=== PATIENT | male | born 1955 | race Caucasian/White ===

== ENCOUNTER 2019-03-21 07:12 | Day surgery (SDC) | payer BC ==
[~2019-03-21 07:12] MED LIST: CEFAZOLIN 1 GM INJ
[2019-03-21] MEDS: SOD CHLORIDE 0.9% 1,000 ML IV (08:57)
[2019-03-21] MEDS ORDERED: CEFAZOLIN 2 GM/50 ML (PMX) 50 ML IVPB (09:00)
[2019-03-21 09:05] LABS: INR 1.03; PROTIME 13.6 Sec (11.9-14.9); PT RATIO 1.1
[2019-03-21 09:41] LABS: PARTIAL THROMBOPLASTIN TIME 36.9 Sec (23.0-35.0)
[2019-03-21] MEDS ORDERED: MIDAZOLAM 1 MG/ML 2 ML INJ (09:56)
[2019-03-21] MEDS ORDERED: ONDANSETRON 4 MG INJ (09:56)
[2019-03-21] MEDS: LIDOCAINE 2% (MDV) 20 ML INJ (10:14)
[2019-03-21] MEDS: BUPIVACAINE 0.5% (SDV) 30 ML INJ (10:14)
[2019-03-21] MEDS ORDERED: HYDROCODONE/APAP (5/325) TAB PO (10:30)
== END 2019-03-21 12:10 | disposition home or self-care (01) ==
LOC: SDS 07:12
DX: C43.62 Malignant melanoma of left upper limb, including shoulder (principal)
CPT/HCPCS: 14021; 85610; 85730; 88307; 88342; 93005